=== PATIENT | female | born 1975 | race Caucasian/White ===

== ENCOUNTER → 2016-09-03 | Outpatient (CLI) | payer BC ==
--- NOTE | 2016-09-03 14:39 | KCIC ---
PROCEDURE Three-view right elbow HISTORY Right elbow pain for 3 months. COMPARISON None FINDINGS No evidence of acute fracture. No evidence of bone destruction. No dislocation. There is mild fullness of the anterior elbow fat pad, but no gross displacement to definitively suggest a joint effusion. IMPRESSION No evidence of acute fracture or dislocation. If symptoms persist, consider short-term follow-up x-rays or MRI of the elbow. Electronically signed by: José Manuel Kessler MD (Sep 03, 2016 14:38:09)
== END | disposition home or self-care (01) ==
LOC: KCIC 13:49
PROVIDERS: ATTEND Family Medicine
DX: M25.521 Pain in right elbow (principal)
CPT/HCPCS: 73080